=== PATIENT | male | born 1980 | race Hispanic/Latino ===

== ENCOUNTER 2020-02-29 09:28 | Emergency (ER) | payer SELFPAY ==
[2020-02-29] MEDS ORDERED: Acetaminophen 500 MG TAB ONE (10:20)
== END 2020-02-29 11:00 | disposition home or self-care (01) ==
LOC: ERS 09:28
DX: M79.10 Myalgia, unspecified site (principal); Z71.6 Tobacco abuse counseling; V89.2XXA Person injured in unspecified motor-vehicle accident, traffic, initial encounter
CPT/HCPCS: 99406